=== PATIENT | female | born 1965 | race African-American/Black ===

== ENCOUNTER 2018-12-23 08:54 | Emergency (ER) | payer BC, OTHER ==
--- NOTE | 2018-12-23 08:59 | PDOC ---
History of Present Illness - General Stated Complaint: Blood Pressure Problem Time Seen by Provider: 12/23/18 08:59 History Source: Patient Exam Limitations: No Limitations - History of Present Illness Initial Comments: Pt is a 53 yo F, with PMH of HTN and migraines, who is presenting via EMS after 2 readings of high blood pressure and feeling of light-headedness. Pt states she took some of her BP medication this AM at 630 AM. At 8 am when she was driving to work, she began to feel light-headed, and "a pressure in my eyes like my BP was high". The pt stopped taking her amlodipine 3 weeks ago, due to problems swallowing the pill, and also started taking a 21 mg nicotine patch every day on Saturday. Her combo valsartan/HCTZ pill was also recently switched to irbesartan. The pts symptoms began to resolve after she ate breakfast around 830. Pt is an employee of [employer], but denies any new stressors at home or work. Pt denies any fevers/chills, headache, vision changes, syncope, chest pain , palpitations, SOB, nausea/vomiting, abdominal pain, urinary symptoms, diarrhea /constipation, or leg swelling. Social: Pt smokes 2-3 cigarettes per day and is on nicotine patch. Denies any alcohol or drug use. Pt denies any recent travel or sick contacts. Surgical: cholecystectomy and lab band. Family: no relevant history. 12/23/18 09:39 Past History - Travel Traveled outside of the country in the last 30 days: No Close contact w/someone who was outside of country & ill: No - Past Medical History Allergies/Adverse Reactions: Allergies Allergy/AdvReac Type Severity Reaction Status Date / Time No Known Allergies Allergy Verified 12/23/18 09:10 Home Medications: Ambulatory Orders Atenolol [Tenormin -] 100 mg PO DAILY 12/19/15 Simvastatin [Zocor -] 40 mg PO HS 12/19/15 Irbesartan/Hydrochlorothiazide [Irbesartan-Hctz 300-12.5 mg Tb] 1 each PO DAILY 12/23/18 Anemia: No Asthma: No Cancer: No Cardiac Disorders: No CVA: No COPD: No CHF: No Dementia: No Diabetes: No GI Disorders: Yes (GERD) Disorders: No HTN: Yes Hypercholesterolemia: Yes Liver Disease: No Seizures: No Thyroid Disease: No - Surgical History Abdominal Surgery: Yes (Abdominoplasty 11/2011) Appendectomy: No Cardiac Surgery: No Cholecystectomy: Yes (02/16/14) Gastric Stapling: No (LAP BAND) Lung Surgery: No Neurologic Surgery: No Orthopedic Surgery: Yes (ORIF Left Ankle and Foot) - Suicide/Smoking/Psychosocial Hx Smoking Status: No Smoking History: Current every day smoker Have you smoked in the past 12 months: Yes Number of Cigarettes Smoked Daily: 7 'Breaking Loose' booklet given: 12/19/15 Hx Alcohol Use: No Drug/Substance Use Hx: No Substance Use Type: None Hx Substance Use Treatment: No Review of Systems - Review of Systems Able to Perform ROS?: Yes Is the patient limited [place] proficient: No Constitutional: Yes: Weight Stable. No: Chills, Diaphoresis, Fever, Loss of Appetite, Malaise, Weakness HEENTM: No: Blurred Vision, Recent change in vision, Double Vision, Nose Pain, Nose Congestion, Throat Pain, Throat Swelling, Difficulty Swallowing Respiratory: No: Cough, Orthopnea, Shortness of Breath Cardiac (ROS): Yes: Lightheadedness. No: Chest Pain, Edema, Irregular Heart Rate, Palpitations, Syncope, Chest Tightness ABD/GI: No: Constipated, Diarrhea, Nausea, Poor Appetite, Poor Fluid Intake, Vomiting, Abdominal cramping : No: Burning, Dysuria, Pain, Urgency Musculoskeletal: No: Back Pain, Joint Pain, Muscle Weakness Integumentary: No: Rash Neurological: No: Headache, Numbness, Paresthesia, Tingling, Weakness, Unsteady Gait, Ataxia, Dizziness Psychiatric: No: Sleep Pattern Change, Change in Appetite Endocrine: No: Increased Urine, Change in Weight Hematologic/Lymphatic: No: Anemia, Blood Clots, Easy Bleeding, Easy Bruising All Other Systems: Reviewed and Negative *Physical Exam - Physical Exam Comments: BP improved to 152/85 on presentation, O2 100% on RA, HR in 80s, pt afebrile. Pt in NAD, normal body habitus. PE showed pt alert and oriented. elevator worker generally intact, muscular strength and sensation intact. Cerebellar exam ( heel to ceballos, finger to nose) all WNL. No visual neglect or difficulty with EOM. Head normocephalic, atraumatic. Eyes PERRLA, EOMI. Oropharynx without erythema or exudates, no LAD b/l. No nasal congestion, hearing intact. Clear heart sounds, S1/S2, no JVD, b/l pedal edema, or heart murmur. Clear lung sounds, no respiratory distress, wheezes, crackles, or accessory muscle use. No abdominal or CVA tenderness to palpation, no rebound, no guarding. Abdomen soft, non-distended, and with normoactive bowel sounds. Skin without jaundice or rash. 12/23/18 09:43 Medical Decision Making - Medical Decision Making Pt was seen at bedside, also will be seen by attending Dr. Wood. Pt presenting via EMS after 2 readings of high blood pressure and feeling of light- headedness. Pt states she took some of her BP medication this AM at 630 AM. At 8 am when she was driving to work, she began to feel light-headed, and "a pressure in my eyes like my BP was high". The pt stopped taking her amlodipine 3 weeks ago, due to problems swallowing the pill, and also started taking a 21 mg nicotine patch every day on Saturday. Her combo valsartan/HCTZ pill was also recently switched to irbesartan. The pts symptoms began to resolve after she ate breakfast around 830. Pt is an employee of [employer], but denies any new stressors at home or work. Pt denies any fevers/chills, headache, vision changes , syncope, chest pain, palpitations, SOB, nausea/vomiting, abdominal pain, urinary symptoms, diarrhea/constipation, or leg swelling. Ordered work-up including ECG to evaluate for any cardiac strain while BP was elevated. Will continue to reassess pt and monitor for symptomatic improvement. 12/23/18 09:25 ECG: NSR, intervals WNL (HR 71, SC 186, QTc 447). No TWIs or significant ST segment changes. No significant changes from prior ECG (2016). 12/23/18 10:09 Pt can be discharged to home with follow-up. Pt advised to follow-up with PCP in 1-2 days. Strict return precautions provided with pt understanding. 12/23/18 10:10 *DC/Admit/Observation/Transfer Diagnosis at time of Disposition: Hypertensive emergency - Discharge Dispostion Disposition: HOME Condition at time of disposition: Improved Decision to Admit order: No - Referrals Referrals: ON STAFF,NOT [Primary Care Provider] - - Patient Instructions Printed Discharge Instructions: DI for Malignant Hypertension Additional Instructions: You were seen in the ER today for high blood pressure, which improved when you arrived to the ER. Please follow-up with your primary care doctor [and referral doctors] within 1-2 days to discuss your visit and make sure your symptoms have improved. Please return to the ER if you have any worsening issues with your blood pressure, headache or vision changes, chest pain, development of fevers or chills, loss of consciousness, inability to tolerate food or fluids, or any other concerns. - Post Discharge Activity
[2018-12-23 09:29] VITALS: PULSE 75; TEMP 98.4; BMI 33.8
--- NOTE | 2018-12-23 10:13 | PDOC ---
Attending Attestation - Resident Resident Name: Tiffanie Riggs - ED Attending Attestation I have performed the following: I have examined & evaluated the patient, The case was reviewed & discussed with the resident, I agree w/resident's findings & plan - Physicial Exam PE: 12/23/18 10:09 vss, BP now 150/80 at triage, 161/90 on my exam well appearing seated in chair, smiling and conversant. perrl, eomi no jvd, heart regular without audible systolic murmur ctab NEURO: Mental status: The patient is alert and oriented x3. Cranial nerves: Cranial nerves II through XII are intact Motor: The upper extremities are 5 over 5 in all muscle groups. The lower extremities are 5 over 5 in all muscle groups. No pronator drift. Sensation: Sensation is intact to light touch throughout. Cerebellar: Gihqcl-[id number]-lsmp is normal in both upper extremities. Heel-knee- ceballos is normal in both lower extremities. Reflexes: 2+ and symmetric in the upper and lower extremities. Gait: Normal. Heel and toe walking are normal. - Medical Decision Making 12/23/18 10:11 53-year-old female with history of hypertension on 3 medications, noncompliant with 1 secondary to difficulty swallowing at presents now with episode of lightheadedness/near syncope while on her way to work, noted to be in the setting of elevated blood pressures, so she presents for evaluation. Symptoms currently resolved. Blood pressures have normalized, patient took her morning doses at home. EKG is nonischemic, no red flags on history or physical exam. Lightheadedness in the setting of possible mild hypoglycemia and elevated blood pressures, now resolved. No evidence for primary cardiac or VETERINARY EPIDEMIOLOGIST process, symptoms have resolved and patient is well-appearing and hemodynamically stable. Reassured, will follow up with her PCP, we'll touch base with her pharmacist regarding options for different amlodipine pills. Understands return criteria. <Fahad Wood - Last Filed: 12/23/18 10:09> - HPI HPI: 12/23/18 10:13 The patient is a 53 year old female with significant past medical history of HTN (noncompliant with Amlodipine x3 weeks secondary to difficulty swallowing) and migraines, who presents to the ED via EMS after having high blood pressure and feeling of lightheaded at the [employer] where she works this morning. The patient reportedly had her normal BP medications at 6:30AM and developed lightheadedness while driving to work around 8AM with associated pressure behind her eyes. The patient states she began to feel improved after eating breakfast around 8:30AM. The patient denies chest pain, shortness of breath, headache and dizziness. The patient denies fever, chills, nausea, vomit, diarrhea and constipation. The patient denies dysuria, frequency, urgency and hematuria. Social: smokes 2-3 cigarettes per day and is on nicotine patch. Denies any alcohol or drug use. Surgical: cholecystectomy and lab band. Family: no relevant history. PCP: Dr. García ([phone]) <Aneta Clark - Last Filed: 12/23/18 10:14> Heart Score/ECG Review #1 ECG reviewed & interpreted by me at: 09:31 General ECG Interpretation: Sinus Rhythm, Normal Rate (71), Normal Intervals ( qtc 447), No acute ischemic changes <Fahad Wood - Last Filed: 12/23/18 10:09> Attestations - Attestations 12/23/18 10:14 Documentation prepared by Aneta Clark, acting as director medical for Fahad Wood MD <Aneta Clark - Last Filed: 12/23/18 10:14>
[2018-12-23 10:18] VITALS: BP 158/84
--- NOTE | 2018-12-23 11:22 | EKG ---
Test Reason : Blood Pressure : / mmHG Vent. Rate : 071 BPM Atrial Rate : 071 BPM P-R Int : 186 ms QRS Dur : 094 ms QT Int : 412 ms P-R-T Axes : 057 -17 023 degrees QTc Int : 447 ms NORMAL SINUS RHYTHM ANTERIOR INFARCT (CITED ON OR BEFORE 29-JAN-2014) ABNORMAL ECG WHEN COMPARED WITH ECG OF 29-JAN-2014 16:07, NO SIGNIFICANT CHANGE WAS FOUND Confirmed by MD ELSIE, MOOSE ([id number]) on 12/23/2018 11:22:10 AM Referred By: Confirmed By:MOOSE ZIMMERMAN MD
== END 2018-12-23 10:15 | disposition home or self-care (01) ==
LOC: JER 08:54
DX: I16.0 Hypertensive urgency (principal); E78.00 Pure hypercholesterolemia, unspecified; K21.9 Gastro-esophageal reflux disease without esophagitis; Z98.84 Bariatric surgery status
CPT/HCPCS: 93005; 93010; 99283-25

== ENCOUNTER 2019-02-21 06:35 | Emergency (ER) | payer OTHER, BC | END 2019-02-21 08:20 | disposition home or self-care (01) | LOC: JER 06:35 ==

== ENCOUNTER 2019-02-23 09:35 | Emergency (ER) | payer OTHER, BC | END 2019-02-23 13:25 | disposition home or self-care (01) | LOC: JER 09:35 ==

== ENCOUNTER → 2019-03-17 | Emergency (ER) | payer BC, OTHER ==
[~2019-03-17] MED LIST: ONDANSETRON 4 MG/2 ML VIAL IVPUSH ONE; ONDANSETRON 4 MG/2 ML VIAL ONE; SODIUM CHLORIDE 1,000 ML IV STA
[2019-03-17 18:16] VITALS: BP 136/80; PULSE 80; TEMP 98.2; BMI 33.8
--- NOTE | 2019-03-17 18:17 | PDOC ---
Rapid Medical Evaluation Time Seen by Provider: 03/17/19 18:14 Medical Evaluation: Allergies Allergy/AdvReac Type Severity Reaction Status Date / Time No Known Allergies Allergy Verified 02/23/19 09:46 03/17/19 18:14 the patient presents to the ER with vomiting and nausea. She states that she has been taking alieve for a foot fracture. She states that after taking the aleive she started vomiting today Exam: ambulatory, no abdominal tenderness Orders: labs, IV Pt to proceed to the ER for further evaluation Discharge Disposition - Diagnosis Vomiting Qualifiers: Vomiting type: unspecified Vomiting Intractability: unspecified Nausea presence : with nausea Qualified Code(s): R11.2 - Nausea with vomiting, unspecified - Referrals - Patient Instructions - Post Discharge Activity
[2019-03-17 19:00] LABS: BASO % 0.2 % (0-2.0); EOS % 4.8 % (0-4.5); HEMATOCRIT 34.4 % (32.4-45.2); HEMOGLOBIN 11.8 GM/dL (10.7-15.3); LYMPH % 38.6 % (8-40); MCH 29.5 pg (25.7-33.7); MCHC 34.2 g/dl (32.0-36.0); MEAN CELL VOLUME 86.2 fl (80-96); MEAN PLT VOLUME 8.6 fl (7.5-11.1); MONO % 10.2 % (3.8-10.2); NEUT % 46.2 % (42.8-82.8); PLATELET COUNT 331 K/MM3 (134-434); RDW 14.3 % (11.6-15.6); WHITE BLOOD COUNT 5.7 K/mm3 (4.0-10.0)
[2019-03-17 19:35] LABS: ALBUMIN 3.8 g/dl (3.4-5.0); BILIRUBIN,TOTAL 0.3 mg/dL (0.2-1); BLOOD UREA NITROGEN 25.2 mg/dL (7-18); CALCIUM 9.2 mg/dL (8.5-10.1); CREATININE 1.2 mg/dL (0.55-1.3); POTASSIUM 3.9 mmol/L (3.5-5.1); TOT PROT 7.3 g/dl (6.4-8.2)
== END | disposition home or self-care (01) ==
LOC: JER 17:59
PROC: 3E033GC Introduction of Other Therapeutic Substance into Peripheral Vein, Percutaneous Approach (ICD-10-PCS; principal; 2019-03-17)
DX: R11.2 Nausea with vomiting, unspecified (principal)
CPT/HCPCS: 36415; 80053; 83690; 85025; 99281-25; J7030